=== PATIENT | female | born 1980 | race African-American/Black ===

== ENCOUNTER 2017-01-11 13:00 | Day surgery (SDC) | payer MEDICAID ==
[~2017-01-11 13:00] MED LIST: CEPH500C3 PO; MULTCHW27 PO; ONDA8
--- NOTE | 2017-01-11 15:05 | RADRPT ---
EXAM DATE/TIME: 01/11/2017 13:59 [place] COMPARISON: No previous studies available for comparison. EXTERNAL COMPARISON : [facility], US LEG, LEFT, December 20, October 09, 2016. INDICATIONS : Enlarged left inguinal canal lymph node. MEDICAL HISTORY : Hypertension. Carcinoma, breast. SURGICAL HISTORY : Cholecystectomy. Mastectomy, bilateral. Bilateral simple mastectomy with tissue expanders. Removal of tissue expanders and replace with silicone implants. Lumpectomy. Chemotherapy. ENCOUNTER: Subsequent ACUITY: 4-6 months PAIN SCORE: 0/10 LOCATION: Left groin. AREA EVALUATED: Left groin FINDINGS: Sonographic and Doppler images of the left inguinal region does show a few lymph nodes, the largest o f which measures 1.3 cm in diameter. This previously measured 1.5 cm on the outside study. In additio n, there is a clear fatty hilum with normal hilar vascularity. As such, except for the fact that the node is borderline prominent, there are no sonographic features to suggest malignancy. I discussed th e findings with both the patient and Dr. Abad. We all agreed that we will continue to observe this region. If there is any change in either the physical or sonographic characteristics of the left ing uinal nodes, biopsy could be considered at that time. MASSES: None. FLUID COLLECTIONS: None. OTHER: Negative. CONCLUSION: Borderline prominent left inguinal lymph node which is otherwise sonographically normal. No biop sy performed. Gato Wilson MD on January 11, 2017 at 15:01 Board Certified Radiologist. This report was verified electronically.
== END 2017-01-11 15:32 | disposition home or self-care (01) ==
LOC: HRAD 13:00 → HRIP 13:01 → HRAD 15:32
PROVIDERS: ATTEND Specialist
DX: R59.0 Localized enlarged lymph nodes (principal); I10 Essential (primary) hypertension; Z85.3 Personal history of malignant neoplasm of breast; Z90.13 Acquired absence of bilateral breasts and nipples; Z92.21 Personal history of antineoplastic chemotherapy
CPT/HCPCS: 76882